=== PATIENT | female | born 1990 | race Caucasian/White ===

== ENCOUNTER 2024-02-28 14:12 | Inpatient (IN) | payer BC ==
[~2024-02-28 14:12] MED LIST: Iopamidol 370 76% 100 ML VIAL ONE
[2024-02-28 15:51] LABS: #Basophils 0.04 10x3/uL (0.0-0.2); #Eosinophils 0.02 10x3/uL (0.0-0.5); #Monocytes 0.45 10x3/uL (0.0-1.1); #Neutrophils 9.17 10x3/uL (1.5-8.4); %Basophils 0.3 % (0.0-2.0); %Eosinophils 0.2 % (0.0-6.0); %Lymphocytes 15.4 % (18.0-47.0); %Monocytes 3.9 % (0.0-10.0); %Neutrophils 79.9 % (40.0-75.0); Hematocrit 39.3 % (34.9-44.5); Hemoglobin 13.4 g/dL (12.0-15.5); Mean Corpuscular HGB CONC 34.1 g/dL (32.0-36.0); Mean Corpuscular Hemoglobin 29.8 pg (27.0-33.0); Mean Corpuscular Volume 87.3 fL (81.6-98.3); Mean Platelet Volume 9.6 fL (7.4-10.4); Platelet Count 240 10x3/uL (150-450); RBC Distribution Width 12.2 % (11.5-14.5); White Blood Cell (WBC) Count 11.5 10x3/uL (3.5-10.5)
[2024-02-28 16:03] LABS: ALT (SGPT) 8 U/L (8-55); AST (SGOT) 18 U/L (5-34); Albumin 4.1 g/dL (3.5-5.0); Alkaline Phosphatase 32 U/L (40-110); Anion Gap 13 mmol/L (10-20); BUN (Urea Nitrogen) 13 mg/dL (7.0-18.7); Bilirubin, Total 0.5 mg/dL (0.2-1.2); Calc. Creatinine Clearance 0 mL/min (70-130); Calcium 10.1 mg/dL (7.8-10.44); Carbon Dioxide 22 mmol/L (22-29); Chloride 105 mmol/L (98-107); Estimated GFR 83; Globulin 3.4 g/dL (2.4-3.5); Glucose 119 mg/dL (70-105); Lipase 16 U/L (8-78); Potassium 3.9 mmol/L (3.5-5.1); Protein, Total 7.5 g/dL (6.0-8.3); Sodium 136 mmol/L (136-145)
[2024-02-28 16:45] LABS: BHCG - Serum Negative (NEGATIVE); Pregs Control Background? CLEAR/WHITE (CLR/WHITE); Pregs Control Bar Appear? YES (CONTROL BAR)
[2024-02-28] MEDS ORDERED: Piperacillin/Tazobactam 4.5 GM VIAL ONE (17:33)
[2024-02-28 17:44] LABS: Bilirubin Neg (Negative); Blood, Urine Negative (Negative); Clarity Clear (Clear); Glucose, Urine (Dipstick) Normal (Negative); Ketone, Urine Negative (Negative); Leukocyte Negative (Negative); Nitrite Negative (Negative); Protein, Urine (Dipstick) Negative (Neg-Trace); Urobilinogen Normal mg/dL (Less than 2)
[2024-02-28] MEDS ORDERED: Ondansetron ODT 4 MG TAB PO PRN (17:45)
[2024-02-28] MEDS ORDERED: Acetaminophen 325 MG TAB PO PRN (17:45)
[2024-02-28] MEDS ORDERED: Ondansetron PF 4 MG/2 ML Vial IVP PRN (17:45)
[2024-02-28 18:22] LABS: Bacteria/HPF None Seen HPF (None Seen); CAUTI Indications for Culture Pelvic or flank pain; RBC/HPF None Seen HPF (0-3); Squamous Epithelial None Seen HPF (0-3); WBC/HPF None Seen HPF (0-3)
[2024-02-28 18:23] LABS: Urine Culture Reflex No No
[2024-02-28 20:16] VITALS: BMI 24.5
[2024-02-28] MEDS: Morphine 4 MG/ML VIAL SLOW IVP PRN (21:36)
[2024-02-29] MEDS ORDERED: PROPOFOL 40 ML ONE (08:15)
[2024-02-29] MEDS ORDERED: Lidocaine 1% PF 5 ML VIAL ONE (08:15)
[2024-02-29] MEDS ORDERED: SUGAMMADEX SODIUM 200 MG/2 ML VIAL ONE (08:15)
[2024-02-29] MEDS ORDERED: Rocuronium Bromide 10 MG/ML (10ML VIAL) ONE (08:15)
[2024-02-29] MEDS ORDERED: Dexamethasone 4 mg/ml Vial ONE (08:15)
[2024-02-29] MEDS ORDERED: Ondansetron PF 4 MG/2 ML Vial ONE ×2 (08:15→09:38)
[2024-02-29] MEDS ORDERED: fentaNYL 50 mcg/mL 1 mL Vial ONE (08:18)
[2024-02-29] MEDS ORDERED: Lidocaine 2% PF 5 ML VIAL ONE (08:21)
[2024-02-29] MEDS ORDERED: CEFAZOLIN 1 GM VIAL ONE (08:50)
[2024-02-29] MEDS ORDERED: Ketorolac Tromethamine 30 MG (1 mL) VIAL ONE (09:00)
[2024-02-29] MEDS ORDERED: Bupivacaine/Epinephrine 0.25% 30 ML VIAL ONE (09:07)
[2024-02-29] MEDS ORDERED: Promethazine HCl 25 MG/ML VIAL ONE (09:52)
[2024-02-29] MEDS ORDERED: Acetaminophen/Codeine 30-300mg Tablet PO PRN (10:00)
[2024-02-29 11:57] VITALS: BP 99/64; TEMP 98.5
== END 2024-02-29 16:41 | disposition home or self-care (01) | DRG 399 ==
LOC: CSHERS 14:12 → CSHTELE 17:47
PROVIDERS: ADMIT Student in an Organized Health Care Education/Training Program; ATTEND Student in an Organized Health Care Education/Training Program
PROC: 0DTJ4ZZ Resection of Appendix, Percutaneous Endoscopic Approach (ICD-10-PCS; principal; 2024-02-29)
DX: K35.80 Unspecified acute appendicitis (principal); Z98.890 Other specified postprocedural states
CPT/HCPCS: 74177; 80053; 81001; 83690; 84703; 85025; 88304; 96374; A4649; J0690; J1100; J1885; J2272; J2405; J2543; J2550; J2704; J3010; Q9967